=== PATIENT | female | born 1970 | race Caucasian/White ===

== ENCOUNTER 2017-12-19 11:15 | Emergency (ER) | payer OTHER | END 2017-12-19 12:20 | disposition home or self-care (01) | LOC: E/R 11:15 | DX: J06.9 Acute upper respiratory infection, unspecified (principal) | CPT/HCPCS: 99283 ==

== ENCOUNTER 2018-01-27 10:12 | Emergency (ER) | payer OTHER | END 2018-01-27 10:49 | disposition home or self-care (01) | LOC: E/R 10:49 | DX: K29.70 Gastritis, unspecified, without bleeding (principal) | CPT/HCPCS: 99284 ==

== ENCOUNTER 2018-05-29 15:59 | Emergency (ER) | payer OTHER | END 2018-05-29 20:25 | disposition home or self-care (01) | LOC: FTE 15:59 | DX: R10.9 Unspecified abdominal pain (principal) | CPT/HCPCS: 99282 ==